=== PATIENT | female | born 2000 | race African-American/Black ===

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

== ENCOUNTER 2024-05-26 09:13 | Emergency (ER) | payer SELFPAY ==
[~2024-05-26] VITALS: Ht 167.6 cm; Wt 88.0 kg
[2024-05-26 09:17] VITALS: O2SAT 99
[2024-05-26 09:54] LABS: BASOPHILS % 0.6 % (0.0-2.0); EOSINOPHILS % 1.3 % (0.0-5.0); HEMATOCRIT. 43.9 % (36.0-48.0); HEMOGLOBIN. 14.9 g/dL (12.0-16.0); LYMPHOCYTES % 29.9 % (20.0-50.0); MEAN CORPUSCULAR HEMOGLOBIN 29.9 pg (28.0-32.0); MEAN CORPUSCULAR HGB CONC 34.1 g/dL (31.0-37.0); MEAN CORPUSCULAR VOLUME 87.7 fL (81.0-99.0); MEAN PLATELET VOLUME 8.9 fl (7.4-10.4); MONOCYTES % 6.3 % (2.0-8.0); NEUTROPHILS % 61.9 % (40.0-76.0); PLATELET 213 x1000/uL (130-400); RED CELL DISTRIBUTION WIDTH 12.9 % (11.6-14.6); WHITE BLOOD COUNT 4.8 x1000/uL (4.5-11.0)
[2024-05-26 10:05] LABS: PROTHROMBIN TIME 11.2 sec (9.6-11.0)
[2024-05-26 10:26] LABS: HCG SCREEN NEGATIVE
[2024-05-26 10:57] LABS: CHLORIDE 105 mEq/L (98-107); POTASSIUM 3.7 mEq/L (3.5-5.1); SODIUM 141 mEq/L (136-145)
[2024-05-26 10:59] LABS: CARBON DIOXIDE 25 mEq/L (21-32)
[2024-05-26 11:04] LABS: CREATININE 0.8 mg/dL (0.6-1.0); GLUCOSE 98 mg/dL (70-105); UREA NITROGEN BLOOD 10 mg/dL (9-23)
[2024-05-26 11:05] LABS: TROPONIN I HIGH SENSITIVITY < 4 ng/L (3.0-34)
[2024-05-26 11:40] VITALS: BP 105/63; PULSE 68; RESP 16; TEMP 37; O2SAT 99
== END 2024-05-26 11:45 | disposition home or self-care (01) ==
LOC: ER 09:13
DX: F41.0 Panic disorder [episodic paroxysmal anxiety] (principal); R00.2 Palpitations; Z88.0 Allergy status to penicillin; Z79.899 Other long term (current) drug therapy
CPT/HCPCS: 36415; 71045; 80048; 84484; 84703; 85025; 99284

== ENCOUNTER 2025-01-10 19:17 | Emergency (ER) | payer SELFPAY ==
[~2025-01-10] VITALS: Ht 157.5 cm; Wt 72.0 kg
[2025-01-10 19:21] VITALS: O2SAT 100
[2025-01-10] MEDS ORDERED: EPIN0.3P3 IM (19:48)
[2025-01-10] MEDS ORDERED: ACET-2708 MT (19:49)
[2025-01-10] MEDS ORDERED: DIPH25CA83 MT (19:51)
[2025-01-10] MEDS: CETIRIZINE 10MG TABLET PO SCH (20:00)
[2025-01-10] MEDS ORDERED: DEXAMETHASONE 1 MG/ML ORAL SYR PO ONE (20:00)
[2025-01-10] MEDS: DEXAMETHASONE 4MG TABLET PO SCH (20:30)
[2025-01-10 20:53] VITALS: BP 123/80; PULSE 85; RESP 20; TEMP 36.9; O2SAT 100
== END 2025-01-10 20:52 | disposition home or self-care (01) ==
LOC: ER 19:17
DX: L50.0 Allergic urticaria (principal); F41.9 Anxiety disorder, unspecified; Z79.899 Other long term (current) drug therapy; Z88.0 Allergy status to penicillin
CPT/HCPCS: 99283; J8540

== ENCOUNTER 2025-01-25 16:18 | Emergency (ER) | payer SELFPAY ==
[~2025-01-25] VITALS: Ht 162.6 cm; Wt 74.0 kg
[~2025-01-25 16:18] MED LIST: DIPH25CA83 MT; EPIN0.3P3 IM
[2025-01-25 16:26] VITALS: TEMP 37; O2SAT 100
[2025-01-25 17:52] LABS: CLARITY URINE CLEAR (CLEAR); COLOR URINE YELLOW (YELLOW); GLUCOSE URINE NEGATIVE (NEGATIVE); KETONES URINE TRACE (NEGATIVE); LEUKOCYTE ESTERASE URINE TRACE (NEGATIVE); NITRITE URINE NEGATIVE (NEGATIVE); OCCULT BLOOD URINE 2+ (NEGATIVE); PH URINE 6.0 (4.5-8.0); PROTEIN URINE NEGATIVE (NEGATIVE); SPECIFIC GRAVITY URINE 1.012 (1.005-1.030); UROBILINOGEN URINE 1.0 E.U./dL (0.2-1.0)
[2025-01-25 18:12] VITALS: BP 132/87; PULSE 92; RESP 17; O2SAT 100
[2025-01-25] MEDS ORDERED: ACETAMINOPHEN 325MG TABLET PO ONE (18:45)
[2025-01-25] MEDS ORDERED: IBUPROFEN 400MG TABLET PO ONE (18:45)
[2025-01-25 19:58] LABS: BACTERIA URINE 2+
[2025-01-25 19:59] LABS: SQUAMOUS EPITHELIAL CELL URINE FEW /lpf (RARE/1+); WBC URINE 0-2 /hpf (0-2)
== END 2025-01-25 19:34 | disposition home or self-care (01) ==
LOC: ER 16:18
DX: R07.9 Chest pain, unspecified (principal); R00.2 Palpitations; Z88.0 Allergy status to penicillin; Z88.1 Allergy status to other antibiotic agents; Z90.49 Acquired absence of other specified parts of digestive tract
CPT/HCPCS: 81003; 93005; 99284